=== PATIENT | female | born 1995 | race Caucasian/White ===

== ENCOUNTER 2016-06-07 15:43 | Emergency (ER) | payer OTHER ==
[~2016-06-07] VITALS: Ht 167.6 cm; Wt 56.0 kg
[2016-06-07 15:46] VITALS: TEMP 37.4; Ht 167.6 cm; Wt 56.0 kg
--- NOTE | 2016-06-07 16:49 | DIAGNOSTIC IMAGING REPORT ---
RIGHT KNEE 3 VIEWS HISTORY: Right knee injury Right COMPARISON: None. FINDINGS: There is no fracture or dislocation. Mild prepatellar soft tissue swelling. No radiopaque foreign bodies. No knee effusion. IMPRESSION: No fractures. Electronically signed by: Maxwell Gordon M.D. 06/07/2016 4:47 PM Dictated Date/Time: 06/07/2016 4:46 PM
[2016-06-07 17:24] VITALS: BP 127/86; PULSE 86; O2SAT 100
--- NOTE | 2016-06-08 15:52 | EMERGENCY ROOM VISIT NOTE ---
ED Visit Note First contact with patient: 15:48 CHIEF COMPLAINT: knee pain HISTORY OF PRESENT ILLNESS: This 21-year-old female patient presents to the emergency department after sustaining an injury to the right knee last night. The patient is unsure of her exact mechanism of injury. Last night was her 21st birthday, and she went drinking. She believes that she may have fell. The patient denies any other injuries besides their knee. The patient is without significant swelling or bruising. There is pain medially. They rate the pain as dull and 8/10. The patient states they are able to walk on it. No numbness or tingling. No previous injuries to this knee. No ankle, foot or hip pain. REVIEW OF SYSTEMS: A 6 system review of systems was completed with positives and pertinent negatives listed in the HPI. ALLERGIES: No known allergies MEDICATIONS: No chronic medications PMH: Otherwise healthy SOCIAL HISTORY: Student who lives locally PHYSICAL EXAM: Vital Signs: Reviewed Nurse's notes, vital signs stable. GENERAL : White female, no acute distress, but appears in pain, well-developed, well- nourished. MENTAL STATUS: Alert, oriented to person place and time, and cooperative. MUSCULOSKELETAL: The right knee is minimally swollen. There is no ecchymosis. There is no joint effusion present. The patient is tender over the medial and superior aspects. There is medial joint line tenderness. The patella does not subluxate. Range of motion is not limited. Strength of the quads and hamstrings is 4/5. Azalia's is negative. Marcell's and Anterior Drawer tests are not limited. There is no laxity with varus and valgus stressing. The foot and toes are warm and well-perfused. Dorsalis pedis pulse 2+. Sensation to pain and light touch is intact. Capillary refill less than 2 seconds. RIGHT KNEE 3 VIEWS HISTORY: Right knee injury Right COMPARISON: None. FINDINGS: There is no fracture or dislocation. Mild prepatellar soft tissue swelling. No radiopaque foreign bodies. No knee effusion. IMPRESSION: No fractures. EMERGENCY DEPARTMENT COURSE: I examined the patient. She appears to have injured her right knee last night in an undetermined fashion. On examination she does have some medial and superior tenderness of the knee, however her ligamentous laxity appears intact at this time. X-rays were obtained and were without significant findings. The patient will be given a knee immobilizer and crutches. She is to follow-up with orthopedics in the next 1-2 weeks if her symptoms persist. She was otherwise invited back to the ER with any new, worsening, or concerning symptoms. Current/Historical Medications Scheduled Medroxyprogesterone Acetate (C (Depo-Provera Contraceptiv), 1 DOSE INJ [id number] Allergies Coded Allergies: No Known Allergies (Unverified , 06/07/16) Vital Signs Date Time Temp Pulse Resp B/P Pulse Ox O2 Delivery O2 Flow Rate FiO2 06/07/16 17:24 86 16 127/86 100 Room Air 06/07/16 15:46 37.4 114 18 108/74 98 Room Air Departure Information Impression Primary Impression: Injury of right knee Dispostion Home / Self-Care Condition GOOD Referrals Nael Martines MD Forms HOME CARE DOCUMENTATION FORM, IMPORTANT VISIT INFORMATION Patient Instructions My [facility] Additional Instructions You were seen and evaluated today on an emergency basis only. This is not a substitute for, or an effort to provide, complete comprehensive medical care. It is not possible to recognize and treat all injuries or illnesses in a single emergency department visit. For this reason it is recommended that you followup with [facility] orthopedics , Dr. Martines's office, if you have persistent symptoms over the next 1-2 weeks. For baseline pain relief you may alternate ibuprofen and acetaminophen every 4 hours for pain control. Take 600 mg ibuprofen (Advil) and then 4 hours later take 1000 mg acetaminophen (Tylenol). Do not take more than 3000 mg acetaminophen in a single day. Use your knee immobilizer and crutches for the next 4-5 days. Slowly advance activity as tolerated. If you have persisting symptoms after this please follow -up with orthopedics. You are welcome to return to the emergency department anytime with new, worsening, or concerning symptoms.
== END 2016-06-07 17:25 | disposition home or self-care (01) ==
LOC: C.EDB 15:45 → C.EDD 17:25
DX: S89.91XA Unspecified injury of right lower leg, initial encounter (principal); X58.XXXA Exposure to other specified factors, initial encounter

== ENCOUNTER 2016-06-14 16:15 | Emergency (ER) | payer OTHER ==
[~2016-06-14] VITALS: Ht 167.6 cm; Wt 56.6 kg
[2016-06-14] MEDS ORDERED: MEDR150I INJ (16:17)
[2016-06-14 16:22] VITALS: TEMP 36.4; Ht 167.6 cm; Wt 56.6 kg
[2016-06-14] MEDS ORDERED: SODIUM CHLORIDE 0.9% 1000ML 1,000 ML IV STA ×2 (18:02→18:17)
[2016-06-14] MEDS ORDERED: ONDANSETRON 8 MG/54 ML D5W IV STA (18:17)
[2016-06-14] MEDS ORDERED: HYDROmorphone INJ 1 MG/ML SYR IV PRN (18:30)
[2016-06-14] MEDS ORDERED: IBUP-1050 PO (18:38)
[2016-06-14 18:40] LABS: BASO % 0.3 %; BASO ABS # 0.03 K/uL (0-0.2); COMPLETE YES; EOS % 0.1 %; HEMATOCRIT 39.8 % (37-47); IG% 0.2 %; LYMPH % 6.7 %; LYMPH ABS # 0.68 K/uL (1.2-3.4); MEAN CELL VOLUME 92.3 fL (80-100); MEAN CORPUSCULAR HEMOGLOBIN 31.6 pg (25-34); MEAN CORPUSCULAR HGB CONC 34.2 g/dl (32-36); MEAN PLATELET VOLUME 9.6 fL (7.4-10.4); MONO % 3.2 %; NEUT % 89.5 %; PLATELET COUNT 265 K/uL (130-400); RED BLOOD COUNT 4.31 M/uL (4.2-5.4); WHITE BLOOD COUNT 10.16 K/uL (4.8-10.8)
[2016-06-14 18:57] LABS: URINE APPEARANCE CLOUDY (CLEAR); URINE COLOR DK YELLOW; URINE EPITHELIAL CELL AUTO >30 /lpf (0-5); URINE NITRITE NEG (NEG); URINE PH 5.5 (4.5-7.5); URINE SPECIFIC GRAVITY 1.026 (1.000-1.030); UROBILINOGEN NEG (NEG); ZZUR CULT IF INDIC CLEAN CATCH YES
[2016-06-14 18:59] LABS: CALCIUM 9.5 mg/dl (8.5-10.1); CREATININE 1.1 mg/dl (0.60-1.20); POTASSIUM 3.7 mmol/L (3.5-5.1)
[2016-06-14 19:14] LABS: MANUAL MICROSCOPIC REQUIRED? NO; REVIEW REQ? YES; URINE BILIRUBIN NEG (NEG)
[2016-06-14 19:21] LABS: URINE MUCUS PRESENT (NONE PRSENT)
--- NOTE | 2016-06-14 19:24 | DIAGNOSTIC IMAGING REPORT ---
CT OF THE ABDOMEN AND PELVIS WITHOUT CONTRAST, STONE PROTOCOL CLINICAL HISTORY: Left flank pain. COMPARISON STUDY: None. TECHNIQUE: Helical axial images of the abdomen and pelvis were obtained without IV or oral contrast according to renal stone protocol. FINDINGS: There is slight dilatation of the left collecting system and left ureter. A 2 mm left pelvic calcification shown on image 329 of 413 likely reflects a minimally obstructing distal left ureteral calculus although the course of the left ureter is difficult to follow on this exam. No additional urinary calculi are identified. Evaluation the remainder of the abdomen and pelvis is suboptimal on this unenhanced exam. The liver, spleen, adrenal glands and pancreas are unremarkable. There is no evidence for a bowel obstruction. The appendix is normal. Trace fluid within the pelvis may be physiologic. Skeletal structures are unremarkable. IMPRESSION: Slight dilatation of the left collecting system and left ureter likely due to a 2 mm distal left ureteral calculus. The course of the left ureter is difficult to follow on this exam but a minimally obstructing calculus is favored over a phlebolith. Electronically signed by: Javon Schofield M.D. 06/14/2016 7:22 PM Dictated Date/Time: 06/14/2016 7:18 PM
[2016-06-14] MEDS ORDERED: SEPTRA DS HOME PACK 1 EA VIAL PO ONE (20:45)
[2016-06-14] MEDS ORDERED: ONDANSETRON HOME PACK 4MG OD TAB PO ONE (20:45)
[2016-06-14] MEDS ORDERED: NORCO 5/325MG HOME PACK PO ONE (20:45)
[2016-06-14] MEDS ORDERED: SULF800T23 PO (20:55)
[2016-06-14] MEDS ORDERED: ONDA4TAB10 SL (20:55)
[2016-06-14] MEDS ORDERED: HYDR-5688 PO (20:55)
[2016-06-14 21:07] VITALS: BP 101/55; PULSE 60; O2SAT 99
--- NOTE | 2016-06-15 02:11 | EMERGENCY ROOM VISIT NOTE ---
History Report prepared by Ravi: Modesto Bradshaw Under the Supervision of: Dr. Nader Owens M.D. First contact with patient: 18:01 Chief Complaint: KIDNEY STONE Stated Complaint: VOMITING, KIDNEY STONE PAIN History of Present Illness The patient is a 21 year old female who presents to the Emergency Room with complaints of sudden left flank pain occurring 09. The patient currently rates her discomfort as a 6-7/10 in severity. The patient states that she was in class earlier and got sudden pain in her left side, back, and some lower abdominal pain. The patient additionally states that she has been having nausea and she has vomited a few times. The patient states that she has a history of kidney stones on her right side last year ago. Pt denies LOC, headache, fevers, chills, diaphoresis, visual changes, neck pain, chest pain, breathing difficulties, nausea, melena, hematochezia, urinary symptoms, numbness, weakness , lymphadenopathy, rash, or other complaints. Source of History: patient Onset: 929 Position: other (left flank) Symptom Intensity: 6-7/10 Timing: other (sudden) Associated Symptoms: + abdominal pain, + back pain, + vomiting Review of Systems See HPI for pertinent positives and negatives. A total of ten systems were reviewed and were otherwise negative. Past Medical & Surgical Medical Problems: (1) Kidney stones Family History Cancer Diabetes mellitus Heart disease Hypertension Social History Smoking Status: Never Smoker Marital Status: single Occupation Status: [employer] student Current/Historical Medications Scheduled Medroxyprogesterone Acetate (C (Depo-Provera Contraceptiv), 1 DOSE INJ [id number] Ondasetron Odt (Zofran Odt), 4 MG SL Q6H Sulfa/Trimethoprim (Bactrim Ds 800MG/160MG), 1 TAB PO BID Scheduled PRN Hydrocodone/Acetaminophen 5MG/325MG (Winston 5MG/325MG), 1-2 TABS PO Q6H PRN for Pain Ibuprofen (Advil), 600 MG PO BID PRN for Pain Allergies Coded Allergies: No Known Allergies (Unverified , 06/07/16) Physical Exam Vital Signs Date Time Temp Pulse Resp B/P Pulse Ox O2 Delivery O2 Flow Rate FiO2 06/14/16 21:07 60 18 101/55 99 06/14/16 19:55 54 18 93/50 98 06/14/16 18:48 73 06/14/16 18:17 72 16 108/69 100 Room Air 06/14/16 16:22 36.4 103 18 103/66 95 Room Air Physical Exam GENERAL: Awake, alert, well-appearing, in no distress HENT: Normocephalic, atraumatic. Oropharynx unremarkable. EYES: Normal conjunctiva. Sclera non-icteric. NECK: Supple. No nuchal rigidity. FROM. No JVD. RESPIRATORY: Clear to auscultation. CARDIAC: Regular rate, normal rhythm. Extremities warm and well perfused. Pulses equal. ABDOMEN: Left lower quadrant and right lower quadrant tenderness. Moderate left upper quadrant tenderness. Soft, non-distended. No rebound or guarding. No masses. RECTAL: Deferred. MUSCULOSKELETAL: Chest examination reveals no tenderness. The back is symmetrical on inspection without obvious abnormality. Left CVA tenderness. No joint edema. LOWER EXTREMITIES: Calves are equal size bilaterally and non-tender. No edema. No discoloration. NEURO: Normal sensorium. No sensory or motor deficits noted. SKIN: No rash or jaundice noted. Medical Decision & Procedures ER Provider Diagnostic Interpretation: CT Radiology results as stated below per my review and radiologist interpretation CT OF THE ABDOMEN AND PELVIS WITHOUT CONTRAST, STONE PROTOCOL CLINICAL HISTORY: Left flank pain. COMPARISON STUDY: None. TECHNIQUE: Helical axial images of the abdomen and pelvis were obtained without IV or oral contrast according to renal stone protocol. FINDINGS: There is slight dilatation of the left collecting system and left ureter. A 2 mm left pelvic calcification shown on image 329 of 413 likely reflects a minimally obstructing distal left ureteral calculus although the course of the left ureter is difficult to follow on this exam. No additional urinary calculi are identified. Evaluation the remainder of the abdomen and pelvis is suboptimal on this unenhanced exam. The liver, spleen, adrenal glands and pancreas are unremarkable. There is no evidence for a bowel obstruction. The appendix is normal. Trace fluid within the pelvis may be physiologic. Skeletal structures are unremarkable. IMPRESSION: Slight dilatation of the left collecting system and left ureter likely due to a 2 mm distal left ureteral calculus. The course of the left ureter is difficult to follow on this exam but a minimally obstructing calculus is favored over a phlebolith. Electronically signed by: Javon Schofield M.D. 06/14/2016 7:22 PM Dictated Date/Time: 06/14/2016 7:18 PM Laboratory Results 06/14/16 18:10 Red Blood Count 4.31, Mean Corpuscular Volume 92.3, Mean Corpuscular Hemoglobin 31.6, Mean Corpuscular Hemoglobin Concent 34.2, Mean Platelet Volume 9.6, Neutrophils (%) (Auto) 89.5, Lymphocytes (%) (Auto) 6.7, Monocytes (%) (Auto) 3.2, Eosinophils (%) (Auto) 0.1, Basophils (%) (Auto) 0.3, Neutrophils # (Auto) 9.09, Lymphocytes # (Auto) 0.68, Monocytes # (Auto) 0.33, Eosinophils # (Auto) 0.01, Basophils # (Auto) 0.03 06/14/16 18:10 Test 06/14/16 00:00 06/14/16 18:10 Urine Test NEG (NEG) White Blood Count 10.16 K/uL (4.8-10.8) Red Blood Count 4.31 M/uL (4.2-5.4) Hemoglobin 13.6 g/dL (12.0-16.0) Hematocrit 39.8 % (37-47) Mean Corpuscular Volume 92.3 fL (80-100) Mean Corpuscular Hemoglobin 31.6 pg (25-34) Mean Corpuscular Hemoglobin Concent 34.2 g/dl (32-36) Platelet Count 265 K/uL (130-400) Mean Platelet Volume 9.6 fL (7.4-10.4) Neutrophils (%) (Auto) 89.5 % Lymphocytes (%) (Auto) 6.7 % Monocytes (%) (Auto) 3.2 % Eosinophils (%) (Auto) 0.1 % Basophils (%) (Auto) 0.3 % Neutrophils # (Auto) 9.09 K/uL (1.4-6.5) Lymphocytes # (Auto) 0.68 K/uL (1.2-3.4) Monocytes # (Auto) 0.33 K/uL (0.11-0.59) Eosinophils # (Auto) 0.01 K/uL (0-0.5) Basophils # (Auto) 0.03 K/uL (0-0.2) RDW Standard Deviation 42.8 fL (36.4-46.3) RDW Coefficient of Variation 12.7 % (11.5-14.5) Immature Granulocyte % (Auto) 0.2 % Immature Granulocyte # (Auto) 0.02 K/uL (0.00-0.02) Urine Color DK YELLOW Urine Appearance CLOUDY (CLEAR) Urine pH 5.5 (4.5-7.5) Urine Specific [place] 1.026 (1.000-1.030) Urine Protein TRACE (NEG) Urine Glucose (UA) NEG (NEG) Urine Ketones 2+ (NEG) Urine Occult Blood 3+ (NEG) Urine Nitrite NEG (NEG) Urine Bilirubin NEG (NEG) Urine Urobilinogen NEG (NEG) Urine Leukocyte Esterase TRACE (NEG) Urine WBC (Auto) 5-10 /hpf (0-5) Urine RBC (Auto) >30 /hpf (0-4) Urine Hyaline Casts (Auto) 10-30 /lpf (0-5) Urine Epithelial Cells (Auto) >30 /lpf (0-5) Urine Bacteria (Auto) 2+ (NEG) Urine Crystals CALCIUM OXALATE (NONE Urine Pathogenic Casts /lpf (0) Urine Mucus PRESENT (NONE PRSENT) Anion Gap 9.0 mmol/L (3-11) Est Creatinine Clear Calc Drug Dose 72.3 ml/min Estimated GFR () 83.1 Estimated GFR (Non- 71.7 BUN/Creatinine Ratio 16.0 (10-20) Calcium Level 9.5 mg/dl (8.5-10.1) Total Bilirubin 0.7 mg/dl (0.2-1) Direct Bilirubin 0.2 mg/dl (0-0.2) Aspartate Amino Transf (AST/SGOT) 15 U/L (15-37) Alanine Aminotransferase (ALT/SGPT) 21 U/L (12-78) Alkaline Phosphatase 77 U/L (45-117) Total Protein 7.8 gm/dl (6.4-8.2) Albumin 4.6 gm/dl (3.4-5.0) Lipase 176 U/L (73-393) Laboratory results reviewed by me Medications Administered Medications (Trade) Dose Ordered Sig/Stefano Route Start Time Stop Time Status Last Admin Dose Admin Sodium Chloride (Nss 1000ml) 1,000 ml @ 999 mls/hr Q1H1M STAT IV 06/14/16 18:02 06/14/16 19:02 DC 1/19/17 18:45 999 MLS/HR Hydromorphone HCl (Dilaudid Inj) 1 mg Q15M PRN IV 06/14/16 18:30 06/14/16 21:55 DC 06/14/16 18:44 1 MG Ondansetron HCl 8 mg 8 mg NOW STAT IV 06/14/16 18:17 06/14/16 18:19 DC 06/14/16 18:44 8 MG Sodium Chloride (Nss 1000ml) 1,000 ml @ 200 mls/hr Q5H STAT IV 06/14/16 18:17 06/14/16 21:55 DC 06/14/16 18:17 200 MLS/HR ED Course 1800: The patient was evaluated in room B2. A complete history and physical exam was performed. 1801: Sodium Chloride 1000 ml @ 999 mls/hr IV 1816: Sodium Chloride 1000 ml @ 200 mls/hr IV, Zofran 8mg IV 1829: Dilaudid Inj 1mg IV 1905: I reevaluated the patient, and she was feeling a lot better. 2036: I reevaluated the patient, and she was feeling well. Discussed results and discharge instructions: She verbalized understanding and agreement. The patient is ready for discharge. 2044: Zofran ODT 4mg 1 homepack PO, Winston 5/325mg 1 Homepack PO, Sulfameth/ Trimeth Ds 800/ 160mg 1 Homepack PO Medical Decision Prior records/ancillary studies reviewed. Triage Nursing notes reviewed and agree them. Additional history obtained from the family. The patient's history was concerning for flank and abdominal pain. Differential diagnosis: Etiologies such as renal colic, appendicitis, diverticulitis, mesenteric ischemia, aortic pathology, infections, inflammatory bowel disease, PUD, biliary pathology, UTI, as well as others were entertained. Physical examination findings: As above. ER treatment provided: Normal saline hydration IV Zofran IV Dilaudid On reassessment the patient felt better. Oral Bactrim Diagnostic interpretation by me: The labs revealed an unremarkable CBC, chemistry panel, LFTs and lipase. negative. Urinalysis was somewhat concerning. Urine culture pending. Imaging studies: CT of the abdomen and pelvis as above. It appears that the patient has isolated renal colic from a left sided stone. Her symptoms were abrupt in onset. The patient stated she has a history of stones and it started as soon. She denied any significant urinary symptoms prior to the onset of the event today. My suspicion for UTI is lower. A culture was sent. The patient was started on Bactrim empirically. She also be given Zofran and hydrocodone. She feels well at this time and I believe will be able to open outpatient. 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 By the evaluation outlined above emergent etiologies such as appendicitis, diverticulitis, mesenteric ischemia, aortic pathology, infections, inflammatory bowel disease, PUD, biliary pathology, UTI, as well as others were deemed relatively unlikely. The patient and father were informed about the findings as listed above. All questions were answered and they were pleased with the treatment. Return instructions were outlined and the patient was discharged in stable condition. Outpatient prescription management: Zofran Winston Bactrim Referral: The pt was referred to [facility] for follow up care regarding their stone. The chart was completed utilizing [employer] Speech voice recognition software. Grammatical errors, random word insertions, pronoun errors, and incomplete sentences are an occasional consequence of this system due to software limitations, ambient noise, and hardware issues. Any formal questions or concerns about the content, text, or information contained within the body of this dictation should be directly addressed to the physician for clarification. Impression Primary Impression: Kidney stone on left side Additional Impressions: Left flank pain Vomiting Scribe Attestation The scribe's documentation has been prepared under my direction and personally reviewed by me in its entirety. I confirm that the note above accurately reflects all work, treatment, procedures, and medical decision making performed by me. Departure Information Dispostion Home / Self-Care Prescriptions Sulfa/Trimethoprim (Bactrim Ds 800MG/160MG) Tab 1 TAB PO BID, #6 TAB Prov: Nader Owens MD 06/14/16 Ondasetron Odt (ZOFRAN ODT) 4 Mg Tab 4 MG SL Q6H for Nausea, #6 TAB Prov: Nader Owens MD 06/14/16 Hydrocodone/Acetaminophen 5MG/325MG (Winston 5MG/325MG) Tab 1-2 TABS PO Q6H Y for Pain, #15 TAB Prov: Nader Owens MD 06/14/16 Referrals No Doctor, Assigned (PCP) Forms HOME CARE DOCUMENTATION FORM, IMPORTANT VISIT INFORMATION, School Instructions Patient Instructions My [facility] Additional Instructions KIDNEY STONE INSTRUCTIONS: Hydrocodone/acetaminophen 5/325mg: Take 1-2 pills every 6 hours as needed for pain. Avoid additional Acetaminophen/Tylenol, alcohol, operating machinery or dangerous equipment, working on ladders or roofs, DRIVING, or situations where being under the influence may be dangerous. It is recommended to use a stool softener such as Colace, 100mg twice daily while taking this medication to avoid constipation. Trimethoprim-Sulfamethoxazole(Bactrim DS): Take one pill twice daily for 3 urine days for your urine. All antibiotics can cause diarrhea. If this occurs and you feel worse or it does not resolve in 1-2 days follow up with your doctor or return to the Emergency Department as this could be signs of serious underlying problems. Any medication can cause an allergic reaction, stop the pills immediately and return to the ER for rash, hives, breathing difficulties, or swelling. Zofran 4 mg oral dissolving tablets: take one tablet and allow it to melt in your mouth every 4 hours as needed for nausea. Ibuprofen(Motrin, Advil) may be used for fever or pain. Use 600mg every six hours as needed. Take with food. Avoid using more than 2400mg in a 24 hour period. Do not use 2400mg per day for more than three consecutive days without physician direction. Prolonged inappropriate use can lead to stomach upset or ulcers. This medication can be taken if you need to drive, work, or perform activities which may be dangerous when taking narcotic pain medication. Strain your urine and collect all the stones or debris for the urologists. Rest and avoid strenuous activity until your stone passes and symptoms resolve. Drink plenty of fluids. Return to the ER for worsening abdominal or back pain, vomiting, fevers, passing out, or as needed. Follow up with [facility] tomorrow, [phone], to arrange a visit. Problem Qualifiers Additional Impressions: Vomiting Nausea presence: with nausea
== END 2016-06-14 21:07 | disposition home or self-care (01) ==
LOC: C.EDB 16:16
DX: N20.1 Calculus of ureter (principal); R11.2 Nausea with vomiting, unspecified; Z83.3 Family history of diabetes mellitus; Z82.49 Family history of ischemic heart disease and other diseases of the circulatory system